=== PATIENT | male | born 1965 | race Caucasian/White ===

== ENCOUNTER 2019-02-02 05:31 | Day surgery (SDC) | payer OTHER ==
[~2019-02-02] VITALS: Ht 162.6 cm; Wt 84.8 kg
[2019-02-02] MEDS ORDERED: CEFAZOLIN SODIUM 1 GM/D5W PM 50 ML IV SCH (07:30)
[2019-02-02] MEDS ORDERED: ceFAZolin 1,000 MG VIAL ONE (08:07)
[2019-02-02] MEDS ORDERED: BUPIVACAINE-MPF 0.25% 30 ML VIAL INJ ONE (08:08)
[2019-02-02] MEDS ORDERED: LIDOCAINE 2% 100 MG/5 ML SYR IVP ONE (08:29)
[2019-02-02] MEDS ORDERED: PROPOFOL 200 MG/20 ML VIAL IV ONE (08:29)
[2019-02-02] MEDS ORDERED: SEVOFLURANE 250 ML BTL INH ONE (08:29)
[2019-02-02] MEDS ORDERED: MIDAZOLAM 2 MG/2 ML VIAL ONE (08:46)
[2019-02-02] MEDS ORDERED: fentaNYL 0.05 MG/ML VIAL ONE (08:46)
[2019-02-02] MEDS ORDERED: ONDANSETRON 4 MG/2 ML VIAL IVP PRN (09:00)
[2019-02-02] MEDS ORDERED: HYDROmorphone 1 MG/ML AMP IVP PRN ×2 (09:00→11:40)
[2019-02-02] MEDS ORDERED: HYDROcodone/APAP 5/325 MG 1 TAB TAB PO PRN (11:40)
[2019-02-02] MEDS ORDERED: MORPHINE SULFATE 2 MG/ML SYR IVP PRN (11:40)
[2019-02-02] MEDS ORDERED: MORPHINE SULFATE 4 MG/ML SYR IV PRN (11:40)
[2019-02-02] MEDS: HYDROmorphone 1 MG/ML AMP IVP PRN ×2 (11:55→12:05)
[2019-02-02] MEDS ORDERED: HYDROmorphone PFS 2 MG/ML SYR ONE (12:02)
== END 2019-02-02 13:15 | disposition home or self-care (01) ==
LOC: MED 05:31 → MMU 06:24 → MED 13:15
PROVIDERS: ATTEND Surgery
DX: K40.20 Bilateral inguinal hernia, without obstruction or gangrene, not specified as recurrent (principal); I10 Essential (primary) hypertension; F12.90 Cannabis use, unspecified, uncomplicated; F17.210 Nicotine dependence, cigarettes, uncomplicated; M19.90 Unspecified osteoarthritis, unspecified site; E66.9 Obesity, unspecified; Z68.32 Body mass index [BMI] 32.0-32.9, adult; Z98.890 Other specified postprocedural states; Z79.82 Long term (current) use of aspirin; Z79.899 Other long term (current) drug therapy
CPT/HCPCS: 49505; 71045; C1781; J0690; J1170; J2001; J2250; J2704; J3010; J3490; J7120

== ENCOUNTER 2019-02-10 14:57 | Inpatient (IN) | payer OTHER ==
[~2019-02-10] VITALS: Ht 162.6 cm; Wt 81.6 kg
--- NOTE | 2019-02-10 15:01 | NUR ---
PT PRESENTS TO THE ED WITH THE CHIEF C/O PAIN AT S/P LEFT INGUINAL HERNIA REPAIR SITE. PER PT, B/L INGUINAL HERNIA REPAIR WAS DONE HERE ON January. SWELLING AT LEFT INGUINAL HERNIA REPAIR SITE SINCE THEN. KOLTON NOTED ON BOTH REPAIR SITE. RIGHT SITE DRY AND INTACT. LEFT INGUINAL HERNIA REPAIR SITE SWOLLEN, DRY BLOOD CRUST NOTED. NO LEAKAGE OR ACTIVE BLEDING FROM SURGICAL WOUND AT TGHIS TIME. RED AND BLUISH SKIN DISCOLORATION NOTED AT THE LEFT SITE. REPORTS SWOLLEN TESTICLES. SKIN WARM TO TOUCH. STATES PAIN OF 10/10. DENIES ANY FEVER. DENIES ANY OTHER PROBLEM AT THIS TIME. VSS.
--- NOTE | 2019-02-10 15:01 | NUR ---
PT BEING SEEN BY DR. GUTIERREZ.
[2019-02-10 15:05] VITALS: BP 115/68
--- NOTE | 2019-02-10 15:05 | NUR ---
PT AMBULATED TO BED 10.
[2019-02-10] MEDS ORDERED: NACL 0.9% 1,000 ML IV ONE (15:13)
[2019-02-10] MEDS ORDERED: NACL 0.9% 1,000 ML IV SCH (15:13)
[2019-02-10] MEDS ORDERED: ONDANSETRON 4 MG/2 ML VIAL IVP ONE (15:15)
[2019-02-10 15:39] LABS: BASOPHILS % (AUTO) 0.3 % (0.0-2.0); EOSINOPHILS # (AUTO) 0.1 K/uL (0-0.4); EOSINOPHILS % (AUTO) 0.6 % (0.0-4.0); HEMATOCRIT 27.9 % (36-52); HEMOGLOBIN 9.6 g/dL (12.0-18.0); LYMPHOCYTES # (AUTO) 1.5 K/uL (2.0-11.5); LYMPHOCYTES % (AUTO) 11.8 % (20.5-51.1); MEAN CORPUSCULAR HEMOGLOBIN 33 pg (27-31); MEAN CORPUSCULAR HGB CONC 34 g/dL (33-37); MEAN CORPUSCULAR VOLUME 96.3 fL (80-94); MONOCYTES # (AUTO) 1.1 K/uL (0.8-1.0); MONOCYTES % (AUTO) 8.6 % (1.7-9.3); NEUTROPHILS # (AUTO) 9.7 K/uL (1.8-7.7); NEUTROPHILS % (AUTO) 78.7 % (42.2-75.2); PLATELET COUNT (AUTO) 370 K/uL (140-450); RED BLOOD CELL COUNT(AUTO) 2.89 MIL/uL (4.20-6.10); RED CELL DISTRIBUTION WIDTH 14.2 % (11.6-13.7); WHITE BLOOD COUNT (AUTO) 12.3 K/uL (4.8-10.8)
[2019-02-10 15:47] LABS: ANION GAP 16.4 (8-16); CARBON DIOXIDE 24.7 mmol/L (21-32); CREATININE 0.9 mg/dL (0.7-1.3); POTASSIUM 4.1 mmol/L (3.5-5.1)
[2019-02-10 15:48] LABS: PROTHROMBIN TIME 10.1 secs (10.8-13.4)
[2019-02-10 15:53] LABS: ALBUMIN 3.3 g/dL (3.4-5.0); TOTAL BILIRUBIN 1.8 mg/dL (0.0-1.0)
--- NOTE | 2019-02-10 16:38 | NUR ---
ABD CT CRITICAL REPORT NOTIFIED DR. GUTIERREZ . REPORT SHOWED TO DR. GUTIERREZ.
[2019-02-10] MEDS ORDERED: ACETAMINOPHEN 325 MG TAB PO PRN (17:00)
[2019-02-10] MEDS ORDERED: ONDANSETRON 4 MG/2 ML VIAL IVP PRN (17:00)
--- NOTE | 2019-02-10 18:30 | NUR ---
PT TRANSFERRED TO [address] VIA [facility] ON STABLE CONDITION. BELONGINGS TAKEN WITH PT. REPORT GIVEN TO PARADISE RAMIREZ.
--- NOTE | 2019-02-10 18:35 | NUR ---
Pt admitted to room 112B from ER at this time. Pt arrived via gurney accompanied by Bambi ER nurse. Pt able to amb from gurney to bed with steady gait. Pt aaox4, verbal, pleasant & cooperative. No signs of distress. oriented to room & unit. Verbalized understanding & able to return demonstrate teachings. Left ac IV intact with ongoing NS @ 100ml/hr. Call light within reach.
[2019-02-10] MEDS: LACTATED RINGERS 1,000 ML IV SCH (18:45)
--- NOTE | 2019-02-10 18:45 | NUR ---
IVF NS changed to LR @ 100ml/hr.
[2019-02-10 19:00] VITALS: BP 123/65
--- NOTE | 2019-02-10 19:20 | NUR ---
Report given to nurse Carolina.
--- NOTE | 2019-02-10 19:20 | NUR ---
RECEIVED REPORT FROM ASHLEY RN DAYSHIFT NURSE AT BEDSIDE FOR CONTINUITY OF CARE PT IN STABLE CONDITION.
--- NOTE | 2019-02-10 19:50 | NUR ---
PT IN LOW BED WITH SIDE RAILS UP X2. PT ORIENTED TO ROOM, TV BED CONTROLS AND BATHROOM WELL CALL LIGHT. PT IS AOX4 AND SKIN INTACT EXCEPT FOR SURGICAL GROIN WOUNDS ON R AND L SIDE FROM POST HERNIA REPAIR THAT WAS DONE HERE ON THE January. PT SAID THAT HE TRIED ICE PACKS BUT SWELLING STILL DIDN'T GO AWAY, AND THAT HE WAS TOLD BY ADMITTING MD TO RETURN BACK TO HOSPITAL. GROIN WOUNDS ARE SLIGHTLY REDDENED AND HAVE 11 KOLTON EACH AND IS SWOLLEN ESPECIALLY ON LEFT SIDE. NO BLEEDING NOTED, BUT TESTICLES ARE ALSO SWOLLEN. PT GIVEN TOWEL TO ELEVATE TESTICLES, PT SAID THAT HE HAS A LITTLE PAIN BUT IS TOLERABLE NOW, HE DECLINES PAIN MEDS AT THIS TIME. PT REMINDED THAT IF HE CHANGES HIS MIND HE CAN CALL AND HE WILL RECEIVE PAIN MEDICATION. PT VERBALIZED UNDERSTANDING. PT LUNG SOUNDS CLEAR AND HAS ACTIVE BOWEL SOUNDS. PT ABLE TO AMBULATE BUT HE DOES SO SLOWLY DUE TO PAIN IN GROIN AND TESTICLES. IV SITE IS 20GUAGE ON LAC AND IS RUNNING LACTATED RINGS AT 100MLS/HR. WILL CONTINUE TO MONITOR PT FOR PAIN AND BLEEDING. PICTURE TAKEN OF PT L AND R GROIN.
--- NOTE | 2019-02-10 20:00 | NUR ---
V/S FOLLOWS T 98.3 P 80 R 18 B/P 123/65 02 97% ON ROOM AIR. BED LOW, SIDE RAILS UP X2 AND CALL RODAS IN REACH.
--- NOTE | 2019-02-10 20:10 | NUR ---
PT REQUEST SOMETHING TO EAT/DRINK BUT HE WAS REMINDED THAT HE IS NPO AT THIS TIME. PT REQUESTED ICE CHIPS. DR. BUCHANAN SERVICE CALLED DR. SENIOR RADIO INTERFERENCE INVESTIGATOR AND WAS ASKED ABOUT PT GETTING ICE CHIPS AND IS HE CAN HAVE PAIN MEDS PO. DR. MORGAN SAID THATS FINE. PT GIVEN ICE CHIPS REQUESTED.
[2019-02-10] MEDS: HYDROcodone/APAP 5/325 MG 1 TAB TAB PO PRN (20:42)
--- NOTE | 2019-02-10 21:00 | NUR ---
PT REQUESTED NORCO FOR MODERATE PAIN 5/10 IN GROIN AREA. WILL MONITOR FOR EFFECT.
[2019-02-11] VITALS: BP 113/62
--- NOTE | 2019-02-11 | NUR ---
[PT IN BED RESTING BED LOW AND SIDE RAILS UP X2. PT HAS NO C/O OF PAIN OR DISTRESS NOTED. V/S FOLLOWS T 99.2 P 66 R 18 B/P 113/62 98% ON R/A.
--- NOTE | 2019-02-11 00:30 | NUR ---
PT IN BED SLEEPING TESTICLES ELEVATED. SMALL AMOUNT OF SEROSANGUINEOUS DRAINAGE NOTED FROM LEFT SURGICAL SITE WOUND. PT HAS NO C/O VOICED. PT INFORMED THAT SURGERY WILL BE DONE TOMORROW AT 11AM BY DR. SHAHID.
--- NOTE | 2019-02-11 03:16 | NUR ---
URINE COLLECTED ANS SENT TO LAB FOR URINALYSIS
[2019-02-11 04:13] LABS: APPEARANCE,URINE CLEAR (CLEAR); BILIRUBIN,URINE NEGATIVE (NEGATIVE); BLOOD, URINE TRACE-I (NEGATIVE); COLOR,URINE DARK YELLOW (YELLOW); LEUKOCYTE ESTERASE ,URINE NEGATIVE (NEGATIVE); NITRITE, URINE NEGATIVE (NEGATIVE); PH,URINE 6.5 (5.0-9.0); UGLUCOSE NEGATIVE (NEGATIVE)
[2019-02-11 04:26] LABS: WBC,URINE 0-5 /HPF (0-5)
[2019-02-11] MEDS ORDERED: ceFAZolin 1,000 MG VIAL ONE ×2 (05:05→11:44)
[2019-02-11] MEDS: LACTATED RINGERS 1,000 ML IV SCH ×3 (05:09→22:44)
--- NOTE | 2019-02-11 05:23 | NUR ---
PT IN BED NO S/S OF PAIN OR DISTRESS NOTED. SURGICAL PROCEDURE EXPLAINED TO PT AND PT SIGNED CONSENT FORM. IV ABT CEFAZOLIN 1GM RECONSTITUTED AND HUNG RUNNING 100MLS/HR ORDERED. TEMP RETAKEN AND IS 97.5
--- NOTE | 2019-02-11 06:39 | NUR ---
BLOOD DRAWS DONE AT BEDSIDE VIA PICC AND GIVEN TO HYDRO STATION OPERATOR FOR AM BLOOD DRAW, PICC INTACT AND BOTH PORTS FLUSHED PATENT WITH BLOOD RETURN. PT IN BED SLEEPING PEACEFULLY BUT AROUSABLE TO NOISE. Addendum: 02/11/19 at 0743 by Carolina Garcia RN WRONG CHART/WRONG PT. PT DOESN'T NOT HAVE A PICC LINE.
[2019-02-11 06:57] LABS: BASOPHILS % (AUTO) 0.4 % (0.0-2.0); EOSINOPHILS # (AUTO) 0.1 K/uL (0-0.4); EOSINOPHILS % (AUTO) 1.4 % (0.0-4.0); HEMATOCRIT 26.6 % (36-52); LYMPHOCYTES # (AUTO) 1.2 K/uL (2.0-11.5); LYMPHOCYTES % (AUTO) 11.8 % (20.5-51.1); MEAN CORPUSCULAR HEMOGLOBIN 33 pg (27-31); MEAN CORPUSCULAR HGB CONC 34 g/dL (33-37); MEAN CORPUSCULAR VOLUME 96.4 fL (80-94); NEUTROPHILS # (AUTO) 7.9 K/uL (1.8-7.7); NEUTROPHILS % (AUTO) 76.4 % (42.2-75.2); PLATELET COUNT (AUTO) 381 K/uL (140-450); RED BLOOD CELL COUNT(AUTO) 2.76 MIL/uL (4.20-6.10); WHITE BLOOD COUNT (AUTO) 10.4 K/uL (4.8-10.8)
[2019-02-11 07:27] LABS: CARBON DIOXIDE 24.9 mmol/L (21-32); CREATININE 0.8 mg/dL (0.7-1.3); POTASSIUM 3.9 mmol/L (3.5-5.1)
--- NOTE | 2019-02-11 07:40 | NUR ---
ENDORSED PT CARE TO KYLEIGH RN DAYSHIFT NURSES FOR CONTINUITY OF CARE, PT INSTABLE CONDITION.
--- NOTE | 2019-02-11 07:45 | NUR ---
RECEIVED REPORT FROM LAMP CLEANER NURSE. PT AWAKE IN BED. PT APPEARED IN NO APPARENT DISTRESS. ALL SAFETY MEASURES IN PLACE. WILL CONTINUE TO MONITOR
--- NOTE | 2019-02-11 07:50 | NUR ---
PATIENT HAS BEEN SCREENED AND CATEGORIZED HIGH NUTRITION RISK. PATIENT WILL BE SEEN WITHIN 1-2 DAYS OF ADMISSION. 02/11/19-02/12/[address]
[2019-02-11 08:00] VITALS: BP 112/71
--- NOTE | 2019-02-11 08:20 | NUR ---
PERFORMED ASSESSMENT AND PTS VITALS. PT APPEARS IN NO APPARENT DISTRESS, WILL CONTINUE TO MONITOR
--- NOTE | 2019-02-11 10:00 | NUR ---
FREQUENT ROUNDING ON PT. PT IN BED RESTING COMFORTABLY. ALL SAFETY MEASURES IN PLACE. WILL CONTINUE TO MONITOR
--- NOTE | 2019-02-11 10:15 | NUR ---
OR STAFF ARRIVED ON THE UNIT TO TAKE PT TO SURGERY.
[2019-02-11] MEDS ORDERED: BUPIVACAINE-MPF/EPI 0.5% 30 ML VIAL INJ ONE (11:21)
[2019-02-11] MEDS ORDERED: PROPOFOL 200 MG/20 ML VIAL IV ONE (11:27)
[2019-02-11] MEDS ORDERED: SEVOFLURANE 250 ML BTL INH ONE (11:27)
[2019-02-11] MEDS ORDERED: LIDOCAINE 2% 100 MG/5 ML SYR IVP ONE (11:27)
[2019-02-11] MEDS ORDERED: fentaNYL 0.05 MG/ML VIAL ONE (11:43)
[2019-02-11] MEDS ORDERED: MIDAZOLAM 2 MG/2 ML VIAL ONE (11:43)
[2019-02-11] MEDS ORDERED: ONDANSETRON 4 MG/2 ML VIAL IVP PRN (11:55)
[2019-02-11] MEDS ORDERED: HYDROmorphone 1 MG/ML AMP IVP PRN (11:55)
--- NOTE | 2019-02-11 13:10 | NUR ---
PT ARRIVED BACK ON UNIT. OR NURSE RADHA GAVE HAND OF REPORT. PT IS AWAKE AND ALERT. SURGICAL SITE DRESSING IS CLEAN INTACT AND ALEXY DRAIN IN PLACE DRAINING SANGUINOUS DRAINAGE. PT IS COMPLAINING OF PAIN. PT WAS GIVEN ICECHIPS TO START ADVANCING DIET.
[2019-02-11] MEDS: MORPHINE SULFATE 4 MG/ML SYR IVP PRN ×2 (13:44→20:00)
[2019-02-11 14:11] VITALS: BP 141/77
--- NOTE | 2019-02-11 14:24 | NUR ---
CALLED THE OFFICE OF DR. APOLLO ADAM AND MADE A FOLLOW UP APPOINTMENT FOR HIM ON 02/16/19 AT 2P.M. [address]ESS [address] [place] [address] PHONE [phone] GAVE THE APPOINTMENT INFORMATION TO THE PATIENT.
--- NOTE | 2019-02-11 14:56 | NUR ---
ROUNDED ON PT. PT SLEEPING IN BED. NO APPARENT DISTRESS. WILL CONTINUE TO MONITOR.
--- NOTE | 2019-02-11 16:00 | NUR ---
PT STATED PAIN HAS IMPROVED. PT REQUESTED FOOD STATING HE WAS HUNGRY. GAVE PT MILK PUDDING AND PHI CRACKERS AND APPLE JUICE. APPEARS PT TOLERATED IT WELL. PT STATES HE FEELS BETTER WITH FOOD NOW.
--- NOTE | 2019-02-11 16:05 | NUR ---
DRAINED ALEXY DRAIN 100ML REMOVED
--- NOTE | 2019-02-11 18:20 | NUR ---
PT RESTING IN BED COMFORTABLY. IV PATENT AND INFUSING, NO COMPLAINTS OF PAIN. PT USED HIS URINAL. NO SIGNS OF DISTRESS. ALL SAFETY MEASURES IN PLACE
--- NOTE | 2019-02-11 19:34 | NUR ---
HANDOFF REPORT GIVEN TO UNARMED SECURITY OFFICER NURSE. PT IN BED RESTING. PT REQUESTED PAIN MEDICATIONS. ALEXY DRAIN STILL DRAINING. IV STILL INFUSING. ALL SAFETY MEASURES IN PLACE.
--- NOTE | 2019-02-11 19:35 | NUR ---
RECEIVED BEDSIDE REPORT FROM ELVA GHOTRA. PT IS AAO X 4. RESPIRATIONS ARE EQUAL AND UNLABORED. PT S/P I&D TODAY WITH DR SHAHID. FRO LEFT INGUINAL HEMATOMA S/P INGUINAL REPAIR ON 02/[address] SHAHID. DRESSING ON CLEAN DRY AND INTACT. ALEXY DRAIN DRAINING DARK RED BLOOD. PT USES URINAL. IS AMBULATORY. IV ON LAC 20G IVF INFUSING PER ORDERS. PLAN OF CARE DISCUSSED. ALL NEEDS MET AT THIS TIME. WILL CONTINUE TO MONITOR. CALL LIGHT WITHIN REACH.
--- NOTE | 2019-02-11 20:00 | NUR ---
DUE MEDICATIONS GIVEN. PT TOLERATED WELL. CALL LIGHT WITHIN REACH. WILL CONTINUE TO MONITOR.
--- NOTE | 2019-02-11 22:00 | NUR ---
PT IS SLEEPING COMFORTABLY IN BED. NO S/S OF DISTRESS. CALL LIGHT WITHIN REACH.
[2019-02-11] MEDS ORDERED: INFLUENZA VIRUS VACCINE QUAD 0.5 ML SYR IMVAC PRN (22:20)
[2019-02-11] MEDS: HYDROcodone/APAP 5/325 MG 1 TAB TAB PO PRN (22:44)
--- NOTE | 2019-02-11 22:44 | NUR ---
NORCO GIVEN FOR PAIN. EMPTIED ALEXY DRAIN OUTPUT 35CC SANGUINEOUS. ALL NEEDS MET AT THIS TIME. CALL LIGHT WITHIN REACH.
[2019-02-12 00:02] VITALS: BP 134/77
--- NOTE | 2019-02-12 00:03 | NUR ---
VS ARE STABLE. PT RESTING COMFORTABLY IN BED. ALL NEEDS MET AT THIS TIME. CALL LIGHT WITHIN REACH.
--- NOTE | 2019-02-12 02:15 | NUR ---
PT IS SLEEPING COMFORTABLY IN BED. NO S/S OF DISTRESS. CALL LIGHT WITHIN REACH. WILL CONTINUE TO MONITOR.
--- NOTE | 2019-02-12 04:40 | NUR ---
IV ANTIBIOTIC NOW INFUSING PER ORDERS. EMPTIED ALEXY DRAIN 25CC. ALL NEEDS MET AT THIS TIME. CALL LIGHT WITHIN REACH.
--- NOTE | 2019-02-12 07:15 | NUR ---
RECEIVED BEDSIDE REPORT FROM PARADISE ESPOSITO. PT STABLE, AWAKE, AND ALERT AND ORIENTED X4. NO SIGNS OF DISTRESS NOTED. DENIES PAIN OR SOB. NO REDNESS ,SWELLING, OR INFLAMMATION NOTED ON IV SITE. CALL RODAS WITHIN REACH. BED IN LOWEST POSITION. SAFETY MEASURES IN PLACE. PLAN OF CARE REVIEWED.
--- NOTE | 2019-02-12 07:16 | NUR ---
GAVE BEDSIDE REPORT TO DEWAYNE IZAGUIRRE RN. PT ENDORSED IN STABLE CONDITION.
[2019-02-12 07:26] LABS: BASOPHILS % (AUTO) 0.4 % (0.0-2.0); EOSINOPHILS # (AUTO) 0.2 K/uL (0-0.4); EOSINOPHILS % (AUTO) 1.8 % (0.0-4.0); HEMATOCRIT 27.7 % (36-52); HEMOGLOBIN 9.5 g/dL (12.0-18.0); LYMPHOCYTES # (AUTO) 1.3 K/uL (2.0-11.5); LYMPHOCYTES % (AUTO) 12.7 % (20.5-51.1); MEAN CORPUSCULAR HEMOGLOBIN 33 pg (27-31); MEAN CORPUSCULAR HGB CONC 34 g/dL (33-37); MEAN CORPUSCULAR VOLUME 95.3 fL (80-94); MONOCYTES # (AUTO) 1.2 K/uL (0.8-1.0); MONOCYTES % (AUTO) 11.5 % (1.7-9.3); NEUTROPHILS # (AUTO) 7.6 K/uL (1.8-7.7); NEUTROPHILS % (AUTO) 73.6 % (42.2-75.2); PLATELET COUNT (AUTO) 407 K/uL (140-450); RED CELL DISTRIBUTION WIDTH 13.8 % (11.6-13.7); WHITE BLOOD COUNT (AUTO) 10.3 K/uL (4.8-10.8)
[2019-02-12 07:50] LABS: CARBON DIOXIDE 27.1 mmol/L (21-32); CREATININE 0.8 mg/dL (0.7-1.3); POTASSIUM 4.1 mmol/L (3.5-5.1)
[2019-02-12 08:00] VITALS: BP 117/83
[2019-02-12] MEDS: LACTATED RINGERS 1,000 ML IV SCH (09:03)
--- NOTE | 2019-02-12 09:05 | NUR ---
WOUND CARE CONSULT NOT DONE. S/P I&D LEFT GROIN HERNIA REPAIR. PER PT. DR. SHAHID WILL CHECK FOR DRESSING CHANGE. PT IS AAX4. ALEXY DRAIN IN PLACE OBSERVE WITH MODERATE AMOUNT OF SEROSANGUINEOUS DRAINAGE OUTPUT.
--- NOTE | 2019-02-12 09:07 | NUR ---
CHANGED PT'S IV BAG.
--- NOTE | 2019-02-12 11:28 | NUR ---
02/12/19 RD INITIAL ASSESSMENT COMPLETED PLEASE REFER TO NUTRITION ASSESSMENT UNDER CARE ACTIVITY FOR ESTIMATED NUTRITIONAL NEEDS. 1. CONTINUE REGULAR DIET TOLERATED -PT HAS GOOD PO INTAKE AND MEETING HIS ENERGY AND PROTEIN NEEDS 2. WOUND HEALING EDUCATION WAS PROVIDED 3. RD TO FOLLOW-UP 5-7 DAYS, LOW RISK HERMAN HERRER[address] RD
--- NOTE | 2019-02-12 12:05 | NUR ---
ADMINISTERED SCHEDULED MEDICATION, PT TOLERATED WELL. NO OTHER NEEDS AT THIS TIME.
[2019-02-12] MEDS: HYDROcodone/APAP 5/325 MG 1 TAB TAB PO PRN (12:41)
--- NOTE | 2019-02-12 15:30 | NUR ---
ALEXY DRAIN OUTPUT 40ML.
[2019-02-12] MEDS ORDERED: CEPH250C16 PO (15:47)
[2019-02-12] MEDS ORDERED: HYDR-5122 PO (15:48)
--- NOTE | 2019-02-12 17:00 | NUR ---
D/C INSTRUCTIONS AND PRESCRIPTION GIVEN. PT VERBALIZED UNDERSTANDING. PT STABLE, AMBULATES WITH STEADY GAIT. QUESTIONS AND CONCERNS WERE ANSWERED. INFLUENZA VACCINE GIVEN. PT REFUSED DISCHARGE PHOTOGRAPHS OF SURGICAL WOUND. D/C IV, CATHETER TIP INTACT, BLEEDING CONTROLLED. ESCORTED PT TO THE LOBBY.
== END 2019-02-12 17:00 | disposition home or self-care (01) | DRG 813 ==
LOC: MED 14:57 → MTU 17:02
PROVIDERS: ADMIT Internal Medicine; ATTEND Internal Medicine
PROC: 3E02340 Introduction of Influenza Vaccine into Muscle, Percutaneous Approach (ICD-10-PCS; 2019-02-11)
PROC: 0J9C00Z Drainage of Pelvic Region Subcutaneous Tissue and Fascia with Drainage Device, Open Approach (ICD-10-PCS; principal; 2019-02-11 11:00)
DX: L76.32 Postprocedural hematoma of skin and subcutaneous tissue following other procedure (principal); E44.1 Mild protein-calorie malnutrition; Y83.8 Other surgical procedures as the cause of abnormal reaction of the patient, or of later complication, without mention of misadventure at the time of the procedure; D50.0 Iron deficiency anemia secondary to blood loss (chronic); Z68.30 Body mass index [BMI] 30.0-30.9, adult; Z87.891 Personal history of nicotine dependence; Z23 Encounter for immunization
CPT/HCPCS: 36415; 71045; 80048; 80053; 81001; 82150; 83690; 84484; 85025; 85610; 86886; 86900; 86901; 87070; 87075; 87081; 87186; 87205; 93005; 99285; J0690; J1170; J2001; J2250; J2270; J2405; J2704; J3010; J3490; J7060; J7120; Q0092

== ENCOUNTER 2022-04-29 17:39 | Emergency (ER) | payer OTHER ==
[~2022-04-29] VITALS: Ht 162.6 cm; Wt 83.9 kg
[~2022-04-29 17:39] MED LIST: CEPH250C16 PO; HYDR-5122 PO
[2022-04-29 17:46] VITALS: BP 159/99
--- NOTE | 2022-04-29 17:50 | NUR ---
Patient ambulated with steady gait to bed 8.
--- NOTE | 2022-04-29 18:00 | NUR ---
57YO MALE PT C/O OF LACERATION AND JAW PAIN. PT STATES DROPPING BOARD ONTO FACE WHILE AT WORK X2 HOURS AGO . PT ALSO TRIPPED AND INJURED LEFT NEW. PT PRESENTS WITH LACERATION UNDER MOUTH WITH ACTIVE BLEEDING AND LACERATION WITH SWELLING ON L NEW. CAP REFILL <3 AND NON PITTING. PT STATES TAKING MOTRIN PRIOR TO ARRIVAL DUE TO HEADACHE. PT ABLE TO AMBULATE , STEADY GAIT WITH DISCOMFORT. PT STATES 2/10 PAIN AT MOST WITH ALL INJURIES. PT AAOX4 , VITALS WITHIN NORMAL RANGE. ALL NEEDS MET AT THIS TIME [facility]
[2022-04-29] MEDS ORDERED: LIDOCAINE MPF 1% 10 MG/ML VIAL INJ ONE (18:25)
[2022-04-29] MEDS ORDERED: IBUPROFEN 600 MG TAB PO ONE (18:25)
--- NOTE | 2022-04-29 19:18 | NUR ---
REPORT GIVEN TO FLORA GOMEZ. TRANSFER OF CARE AT THIS TIME
[2022-04-29] MEDS ORDERED: BACI1PAC6 TP (19:20)
[2022-04-29] MEDS ORDERED: IBUP-2213 PO (19:20)
[2022-04-29 19:29] VITALS: BP 159/99
--- NOTE | 2022-04-29 19:29 | NUR ---
Patient discharged with v/s stable. Written and verbal after care instructions given and explained. Patient alert, oriented and verbalized understanding of instructions. Ambulatory with steady gait. All questions addressed prior to discharge. ID band removed. Patient advised to follow up with PMD. Rx of BACITRACIN OINTMENT AND IBUPROFEN given. Patient educated on indication of medication including possible reaction and side effects. Opportunity to ask questions provided and answered.
--- NOTE | 2022-04-29 19:57 | NUR ---
The patient's care was reviewed and supervised by Vashti Alatorre, RN, RN.
== END 2022-04-29 19:29 | disposition home or self-care (01) ==
LOC: MED 17:39
DX: S01.81XA Laceration without foreign body of other part of head, initial encounter (principal); X58.XXXA Exposure to other specified factors, initial encounter; Y93.89 Activity, other specified; Y92.89 Other specified places as the place of occurrence of the external cause; Y99.8 Other external cause status
CPT/HCPCS: 12011; 90471; 90715; 99283; J2001

== ENCOUNTER 2022-05-04 09:56 | Emergency (ER) | payer OTHER ==
[~2022-05-04] VITALS: Ht 193 cm; Wt 83.9 kg
[~2022-05-04 09:56] MED LIST changes: +BACI1PAC6 TP; +IBUP-2213 PO
[2022-05-04 10:00] VITALS: BP 120/59
--- NOTE | 2022-05-04 10:02 | NUR ---
PT AMB TO BED 7.
--- NOTE | 2022-05-04 10:09 | NUR ---
57 y/o male came in for suture removal to chin. Patient had sutures put in on Friday. Denies pain. Medical History: Denies NKDA
--- NOTE | 2022-05-04 10:17 | NUR ---
Dr. Sandhu at bedside evaluating patient.
--- NOTE | 2022-05-04 10:32 | NUR ---
Patient discharged with v/s stable. Written and verbal after care instructions given. Patient verbalized understanding. Ambulatory with steady gait. All questions addressed prior to discharge. Advised to follow up with PMD.
--- NOTE | 2022-05-04 10:33 | NUR ---
Chart checked and compleated. The patient's care was reviewed and supervised by daryn chino.
== END 2022-05-04 10:33 | disposition home or self-care (01) ==
LOC: MED 09:56
DX: S01.81XD Laceration without foreign body of other part of head, subsequent encounter (principal); Z48.02 Encounter for removal of sutures; Z98.890 Other specified postprocedural states; Z79.1 Long term (current) use of non-steroidal anti-inflammatories (NSAID); Z79.2 Long term (current) use of antibiotics; Z79.891 Long term (current) use of opiate analgesic; W22.8XXD Striking against or struck by other objects, subsequent encounter
CPT/HCPCS: 99281